=== PATIENT | male | born 1935 | race Caucasian/White ===

== ENCOUNTER → 2016-09-25 | Outpatient (CLI) | payer OTHER ==
[~2016-09-25] VITALS: Ht 177.8 cm; Wt 83.5 kg
[~2016-09-25] MED LIST: ATORVASTATIN CA40 MG PO; COUMADIN 2 MG TA2 M1 PO; DIGOXIN125 MCG PO; FOLIC ACID1 MG PO; LISINOPRIL10 MG PO; METAMUCIL PAC1 UDPKT PO; METHOTREXATE 22.5 MG PO; PREDNISONE 2.52.5 M1 PO; SORINE 80 MG TA80 M1 PO; SOTALOL80 MG PO; VITAMIN D32000 UNIT PO; XALATAN2.5 ML OPHTHALMIC
--- NOTE | ~2016-09-25 | P ---
[facility] [place] [address] PROCEDURE REPORT Name: NOMAN BONILLA Room #: REG [facility]#: [id number] Admission: 09/25/16 Attend Phys: Deepak Taylor MD Discharge: Date of : 39 Report #: [id number] THIS REPORT FOR: //name// CC: Deepak Sanches MD BRIEF HISTORY: The patient is a 80-year-old male with a history of colon polyps for high-risk screening colonoscopy. POSTOPERATIVE DIAGNOSES: 1. Diminutive polyp, ascending colon. 2. Diminutive polyp, sigmoid colon. 3. Mild diverticulosis coli. 4. Scattered venous lakes, nonbleeding. MEDICATIONS: Deep sedation with propofol per anesthesia. SPECIMENS: 1. Ascending colon polyp. 2. Polyp, sigmoid colon. ESTIMATED BLOOD LOSS: 3 mL. PROCEDURE: Colonoscopy to cecum and terminal ileum with biopsy. FINDINGS: Prior to propofol sedation, procedure of colonoscopy discussed with the patient as well as potential risks and its complications. He indicates he understands and desires to proceed. DESCRIPTION OF PROCEDURE: With the patient in the left lateral decubitus position, digital examination was completed, which revealed no abnormalities. Subsequently, the [employer] video colonoscope was introduced into the rectum, advanced under direct vision to the cecum. Done with minimal difficulty. The cecum was identified by the ileocecal valve and the appendiceal orifice. I was able to visualize the distal segment of terminal ileum, which was inspected and noted to be unremarkable. At that point, the scope was slowly withdrawn and careful circumferential views were obtained including retroflexing the scope in the ascending colon. As we withdrew the scope, he was noted to have a good prep. The mucosa was within normal limits, normal vascular pattern, normal light reflex. As the scope was withdrawn, a diminutive polyp was seen in the mid ascending colon and removed by biopsy. The scope was further withdrawn and no additional abnormalities were noted until the left column was reached in the descending colon. In the descending colon, there were a few scattered venous lakes which were nonbleeding. Scope was further withdrawn and he was found to have moderate diverticular disease of the sigmoid colon, without endoscopic evidence of diverticulitis. In addition, in the mid sigmoid colon, another [facility] [address] [place] [address] PROCEDURE REPORT Name: NOMAN BONILLA Room #: REG [facility].#: [id number] Admission: 09/25/16 Attend Phys: Deepak Taylor MD Discharge: Date of : 39 Report #: [id number] diminutive polyp was seen and removed by biopsy. Scope was further withdrawn and no additional mucosal abnormalities were seen. Upon retroflexion, no abnormalities were seen. Scope was withdrawn. The patient tolerated the procedure well. CONDITION OF THE PATIENT UPON DISCHARGE: Following procedure, the patient drowsy, arousable and conversant. He will be discharged home when fully ambulatory. INSTRUCTIONS TO THE PATIENT AND FAMILY AT THE TIME OF DISCHARGE: We will follow up on the path of the polyps. However, the polyps are quite small. At this point in time, there is not likely to be significant benefit from routine high-risk screening colonoscopy. However, if he develops a specific problem, endoscopic evaluation could be undertaken at that point in time. He will return to the care of Dr. Lobo Sanches and return to see me as needed. Last colonoscopy in 2009. Withdrawal time from the cecum was 16 minutes. <ELECTRONICALLY SIGNED> By: Deepak Taylor MD 09/26/16 1151 1003 1206 Deepak Taylor MD /nt
--- NOTE | ~2016-09-25 | S ---
[facility] [place] [address] SURGICAL PATH RPT PROCEDURE Name: NORBERT STAFFORD Room #: REG [facility] ZacharyMaury.#: [id number] Admission: 09/25/16 Date of : 39 Discharge: Report #: [id number] Path Case #: [id number] PATHOLOGY REPORT COLLECTION DATE: 09/25/2016 RECEIVED DATE: 09/26/2016 SUBMITTING PHYS: Dr. Deepak Taylor OTHER PHYS: Dr. Lobo Sanches SPECIMEN(S) RECEIVED: A.Bx of gastritis B.Polyp at ascending colon C.Polyp at sigmoid colon * * * * * * * * * * * * FINAL DIAGNOSIS: A. "BX of gastritis", biopsy: - Gastric antral-type mucosa with mild reactive changes and mild chronic inflammation. - Negative H. pylori immunohistochemical stain (block A1); control reacted appropriately. B. "Polyp at ascending colon", biopsy: - Tubular adenoma; no high-grade dysplasia. C. "Polyp at sigmoid colon", biopsy: - Hyperplastic polyp. PATHOLOGIST: iFdelia Castano M.D. REPORT ELECTRONICALLY SIGNED BY: Fidelia Castano M.D. DATE/TIME: 09/29/2016 23:49 * * * * * * * * * * * * GROSS PATHOLOGY: A. Received in formalin labeled "Norbert Stafford, biopsy of gastritis," are four segments of torrez soft tissue measuring 1.0 x 0.8 x 0.1 cm in aggregate dimensions and ranging from 0.2 to 0.5 cm in maximum dimension. The specimen is submitted entirely in cassette A1. B. Received in formalin labeled "Norbert Stafford, polyp at ascending colon," is a segment of torrez soft tissue measuring 0.4 cm in maximum dimension. The specimen is submitted entirely in cassette B1. C. Received in formalin labeled "Norbert Stafford, polyp at sigmoid colon," are two segments of torrez soft tissue measuring 0.5 x 0.4 x 0.1 cm in aggregate dimensions and ranging from 0.4 to 0.5 cm in maximum dimension. The specimen is submitted entirely in cassette C1. (CAA; 09/27/2016) [address] [place] [address] SURGICAL PATH RPT PROCEDURE Name: NORBERT STAFFORD Room #: REG [facility]#: [id number] Admission: 09/25/16 Date of : 39 Discharge: Report #: [id number] Path Case #: [id number] CLINICAL HISTORY: History of polyps, reflux, dysphagia INITIAL CPT CODE(S): A; 52871, 28110 B; 18833 C; 50911 Professional services performed by [facility] at [address], [place] [address] Technical services performed by [facility] at [address] [place] [address], [facility] [address] [address]. [facility] [address] [address] PHONE: [phone] DIRECTOR: Roddy W. Bennett, M.D. * * * END OF REPORT * * *
--- NOTE | ~2016-09-25 | P ---
[facility] [place] [address] PROCEDURE REPORT Name: NOMAN BONILLA Room #: REG [facility]#: [id number] Admission: 09/25/16 Attend Phys: Deepak Taylor MD Discharge: Date of : 39 Report #: [id number] THIS REPORT FOR: //name// CC: Deepak Sanches MD DATE OF SERVICE: 09/25/2016 BRIEF HISTORY: The patient is a 80-year-old male who has some coughing and brings up blood. He had an ENT evaluation as source could not be identified. He generally is on warfarin, but INR today is 1.1 and he did bring up bloody mucusy material today. He also has a history of a Schatzki ring and intermittent solid food dysphagia. PREOPERATIVE DIAGNOSES: 1. Possible upper gastrointestinal bleeding with hemoptysis versus hematemesis. 2. Intermittent solid food dysphagia. MEDICATIONS: Deep sedation with propofol per anesthesia. SPECIMEN: Biopsies of gastritis. ESTIMATED BLOOD LOSS: 3 mL. PROCEDURE: EGD with biopsy and Cabrera dilation. FINDINGS: Prior to propofol sedation, procedure of upper endoscopy discussed with the patient as well as potential risks and its complications. He indicates he understands and desires to proceed. DESCRIPTION OF PROCEDURE: With the patient in left lateral decubitus position, the [employer]i video endoscope was inserted in the cervical esophagus under direct vision without difficulty. Examination of this organ to its entire length revealed normal esophageal mucosa down the squamocolumnar junction. At the squamocolumnar junction, a single erosion was seen consistent with a grade A erosive esophagitis. Active bleeding was not seen. In addition, a modest Schatzki ring was seen. Scope was advanced and about 2 cm sliding type hiatus hernia was encountered. The mucosa in the hernia was unremarkable. Scope was advanced in the stomach, which was examined on end view as well as retroflexed views. There was erythema in the antrum and ulcers were seen, there was no bleeding. Biopsies obtained of the gastritis. Also, no bleeding lesions were seen. Pylorus, duodenal bulb and postbulbar sweep were inspected and noted to be within normal limits. At that point, the scope was slowly withdrawn and careful circumferential views were obtained. [facility] [address] [place] [address] PROCEDURE REPORT Name: NOMAN BONILLA Room #: REG [facility].#: [id number] Admission: 09/25/16 Attend Phys: Deepak Taylor MD Discharge: Date of : 39 Report #: [id number] Subsequently, he was dilated with passage of 50-Ind[place]ian Cabrera dilator. There was no resistance. CONDITION OF THE PATIENT UPON DISCHARGE: Following procedure, the patient drowsy and he was prepared for colonoscopy. INSTRUCTIONS TO THE PATIENT AND FAMILY AT THE TIME OF DISCHARGE: The patient has brought up some bloody material. He does have a mild erosive esophagitis with a single erosion seen. We will place him on omeprazole 20 mg daily to take for 6 weeks and thereafter on an as needed basis. I doubt the blood, I do not see a source to explain his bleeding. At this point, would consider pulmonary evaluation as I think this actually represents a hematemesis. He should return for dilation, he was running on an as needed basis. At this point in time, we will proceed with colonoscopy due to his history of colon polyps. <ELECTRONICALLY SIGNED> By: Deepak Taylor MD 09/26/16 1151 0933 1206 Deepak Taylor MD /nt
[2016-09-25 08:59] LABS: INR 1.1; PROTIME 11.8 Seconds (9.3-11.4)
== END | disposition home or self-care (01) ==
LOC: GI 07:49
PROVIDERS: Specialist
DX: Z09 Encounter for follow-up examination after completed treatment for conditions other than malignant neoplasm (principal); K63.5 Polyp of colon; K57.30 Diverticulosis of large intestine without perforation or abscess without bleeding; K63.89 Other specified diseases of intestine; R04.2 Hemoptysis; R13.19 Other dysphagia; K22.70 Barrett's esophagus without dysplasia; K44.9 Diaphragmatic hernia without obstruction or gangrene; K25.9 Gastric ulcer, unspecified as acute or chronic, without hemorrhage or perforation; I10 Essential (primary) hypertension; E78.00 Pure hypercholesterolemia, unspecified; I48.91 Unspecified atrial fibrillation; H40.9 Unspecified glaucoma; M35.3 Polymyalgia rheumatica; Z98.890 Other specified postprocedural states; Z79.01 Long term (current) use of anticoagulants; Z88.8 Allergy status to other drugs, medicaments and biological substances; Z79.899 Other long term (current) drug therapy
CPT/HCPCS: 62110; 62900